=== PATIENT | male | born 1980 | race Caucasian/White ===

== ENCOUNTER 2017-04-02 07:39 | Observation (INO) | payer OTHER ==
[~2017-04-02] VITALS: Ht 170.2 cm; Wt 85.0 kg
[~2017-04-02 07:39] MED LIST: ALPR0.5T8 PO; CARI350 PO; CeFAZolin 2 GM/DEXTROSE 50 ML IV ONE; FENO160 PO; GABA-533 PO; HYDR-3709 PO; OMEP20 PO; RINGERS SOLUTION,LACTATED 1,000 ML IV ONE
[2017-04-02 08:12] LABS: BASOPHILS % (AUTO) 0.5 % (0.0-2.0); EOSINOPHILS % (AUTO) 3.5 % (1.0-6.0); HEMATOCRIT 45.5 % (41-53); HEMOGLOBIN 15.4 g/dL (13.5-17.5); LYMPHOCYTES # (AUTO) 2.9 K/uL (1.0-4.8); LYMPHOCYTES % (AUTO) 47.9 % (22.0-44.0); MEAN CORPUSCULAR HEMOGLOBIN 29.8 pg (26.0-34.0); MEAN CORPUSCULAR HGB CONC 33.8 G/dL (31.0-37.0); MEAN CORPUSCULAR VOLUME 88 fL (80-100); MONOCYTES # (AUTO) 0.7 K/uL (0.1-1.0); MONOCYTES % (AUTO) 11.8 % (2.0-9.0); NEUTROPHILS # (AUTO) 2.2 K/uL (1.8-7.7); NEUTROPHILS % (AUTO) 36.3 % (40.0-70.0); PLATELET COUNT (AUTO) 292 K/uL (150-450); RED BLOOD CELL COUNT(AUTO) 5.16 MIL/uL (4.50-5.90); RED CELL DISTRIBUTION WIDTH 12.9 % (11.5-14.5); WHITE BLOOD COUNT (AUTO) 6.1 K/uL (4.5-11.0)
[2017-04-02 08:27] LABS: PROTHROMBIN TIME 10.1 SEC (9.4-11.6)
[2017-04-02 08:31] LABS: CALCIUM, TOTAL 9.1 mg/dL (8.8-10.5); CREATININE 1.45 mg/dL (0.60-1.30); POTASSIUM 4.9 mmol/L (3.5-5.1)
[2017-04-02 08:36] LABS: ALBUMIN 3.9 g/dL (3.4-5.0); BILIRUBIN,TOTAL 0.4 mg/dL (0.1-1.0); TOTAL PROTEIN, SERUM 7.5 g/dL (6.4-8.2)
[2017-04-02] MEDS ORDERED: CeFAZolin 2 GM/DEXTROSE 50 ML IV ONE (09:00)
[2017-04-02] MEDS ORDERED: ZOLPIDEM TARTRATE 10 MG TABLET PO PRN (10:15)
[2017-04-02] MEDS ORDERED: PROMETHAZINE HCL 12.5 MG in SODIUM CHLORIDE 0.9% 50 ML IV PRN (10:15)
[2017-04-02] MEDS ORDERED: DiphenhydrAMINE HCL 50 MG/ML VIAL IVP PRN (10:15)
[2017-04-02] MEDS ORDERED: MAG HYDROX/AL HYDROX/SIMETH 30 ML SUSP UDCUP PO PRN (10:15)
[2017-04-02] MEDS ORDERED: ACETAMINOPHEN 1000 MG/ISO-OSM 100 ML IV ONE (10:17)
[2017-04-02] MEDS ORDERED: BUPIVACAINE HCL/PF 0.5% 30 ML VIAL ONE (10:19)
[2017-04-02] MEDS ORDERED: HYDROmorphone 2 MG/ML SYRINGE ONE (11:11)
[2017-04-02] MEDS ORDERED: ZOLPIDEM TARTRATE 5 MG TABLET PO PRN (11:30)
[2017-04-02] MEDS ORDERED: MEPERIDINE-PF 25 MG/ML SYRINGE IVP PRN (11:30)
[2017-04-02] MEDS ORDERED: HYDROmorphone 2 MG/ML SYRINGE IVP PRN (11:30)
[2017-04-02] MEDS ORDERED: MORPHINE SULFATE 15 MG ER TABLET PO PRN (11:30)
[2017-04-02] MEDS ORDERED: RINGERS SOLUTION,LACTATED 1,000 ML IV ONE (11:38)
[2017-04-02] MEDS ORDERED: OxyCODONE HCL/ACETAMINOPHEN 5-325 MG TABLET PO PRN (11:45)
[2017-04-02] MEDS ORDERED: GLYCOPYRROLATE 0.2 MG/ML VIAL IM ONE (12:00)
[2017-04-02] MEDS ORDERED: CYCLOBENZAPRINE HCL 10 MG TABLET PO SCH (12:00)
[2017-04-02] MEDS ORDERED: MIDAZOLAM HCL 5 MG/ML VIAL IVP ONE (12:00)
[2017-04-02] MEDS ORDERED: KETAMINE HCL 50 MG/ML 10 ML VIAL IVP ONE (12:00)
[2017-04-02] MEDS ORDERED: FentaNYL CITRATE-PF 100 MCG/2 ML VIAL IVP ONE (12:00)
[2017-04-02] MEDS ORDERED: DEXAMETHASONE SOD PHOS 4 MG/ML VIAL IVP ONE (12:00)
[2017-04-02] MEDS ORDERED: GUM MASTIC/STORAX/MSAL/ALCOHOL LIQUID 0.67 ML VIAL TP ONE (12:23)
[2017-04-02] MEDS ORDERED: MIDAZOLAM HCL 2 MG/2 ML VIAL IVP ONE (12:50)
[2017-04-02] MEDS ORDERED: FentaNYL CITRATE-PF 100 MCG/2 ML VIAL ONE (13:16)
[2017-04-02] MEDS: FentaNYL CITRATE-PF 100 MCG/2 ML VIAL IVP PRN ×2 (13:18→13:25)
[2017-04-02 14:05] VITALS: BP 141/95
[2017-04-02] MEDS: HYDROmorphone 2 MG/ML SYRINGE IVP PRN ×4 (14:23→23:55)
[2017-04-02] MEDS: CARISOPRODOL 350 MG TABLET PO PRN (16:15)
[2017-04-02 16:31] VITALS: BP 146/91
[2017-04-02] MEDS: ACETAMINOPHEN 1000 MG/ISO-OSM 100 ML IV SCH ×2 (17:57→23:46)
[2017-04-02] MEDS: ONDANSETRON HCL 4 MG/2 ML VIAL IVP PRN (17:58)
[2017-04-02 19:38] VITALS: BP 139/90
[2017-04-02] MEDS: OXYGEN THERAPY IH SCH (23:46)
[2017-04-02 23:55] VITALS: BP 132/93
[2017-04-03] MEDS: ACETAMINOPHEN 1000 MG/ISO-OSM 100 ML IV SCH (05:43)
[2017-04-03 05:48] VITALS: BP 136/81
[2017-04-03] MEDS: HYDROmorphone 2 MG/ML SYRINGE IVP PRN ×2 (05:51→11:03)
[2017-04-03] MEDS: ONDANSETRON HCL 4 MG/2 ML VIAL IVP PRN ×2 (05:52→11:10)
[2017-04-03 07:45] VITALS: BP 124/75
[2017-04-03] MEDS: OXYGEN THERAPY IH SCH (08:00)
[2017-04-03] MEDS: CARISOPRODOL 350 MG TABLET PO PRN (09:32)
[2017-04-03] MEDS ORDERED: ONDANSETRON HCL 4 MG/2 ML VIAL IVP ONE (12:50)
[2017-04-03] MEDS ORDERED: LIDOCAINE HCL/PF 2% 5 ML VIAL INJ ONE (12:50)
[2017-04-03] MEDS ORDERED: NEOSTIGMINE METHYLSULFATE 1 MG/ML 10 ML VIAL IVP ONE (12:50)
[2017-04-03] MEDS ORDERED: PROPOFOL 1% 20 ML VIAL IVP ONE (12:50)
== END 2017-04-03 12:51 | disposition home or self-care (01) ==
LOC: 4E 07:39
PROVIDERS: ADMIT Orthopaedic Surgery Orthopaedic Surgery of the Spine; ATTEND Orthopaedic Surgery Orthopaedic Surgery of the Spine
DX: M48.02 Spinal stenosis, cervical region (principal); M79.601 Pain in right arm
CPT/HCPCS: 20930; 22551; 22552; 22853 ×3; 36415; 80053; 85025; 85610; 85730; 87081; 96374; 96375; 96376; 97116; 97161; 97165; 97530; C1713 ×3; G0378 ×2; J0131 ×2; J0690; J1100; J1170 ×2; J2250 ×2; J2405 ×2; J2704; J3010; J3490 ×3; J7120; Z7610 ×2